=== PATIENT | male | born 1960 | race Caucasian/White ===

== ENCOUNTER 2023-11-11 07:49 | Outpatient (CLI) | payer OTHER | END 2023-11-11 07:56 | disposition home or self-care (01) | LOC: TOM 07:49 | PROVIDERS: ATTEND Urology | DX: R31.21 Asymptomatic microscopic hematuria (principal); N40.0 Benign prostatic hyperplasia without lower urinary tract symptoms; R97.20 Elevated prostate specific antigen [PSA] ==

== ENCOUNTER 2024-04-10 08:13 | Outpatient (CLI) | payer OTHER | END 2024-04-10 08:18 | disposition home or self-care (01) | LOC: TOM 08:13 | PROVIDERS: ATTEND Urology | DX: N28.1 Cyst of kidney, acquired (principal); N40.0 Benign prostatic hyperplasia without lower urinary tract symptoms; R31.21 Asymptomatic microscopic hematuria; R97.20 Elevated prostate specific antigen [PSA] ==